=== PATIENT | male | born 1945 | race Caucasian/White ===

== ENCOUNTER → 2017-01-11 | Day surgery (SDC) | payer MEDICARE ==
[~2017-01-11] MED LIST: PROSCAR5 MG PO; SIMVASTATIN20 MG PO; TYLOX 5-500 CA1 EACH PO; ZOCOR
--- NOTE | ~2017-01-11 | OR ---
Unit #: [id number] #: [id number] Patient: GRADY ORONA [id number] [address] [address] [id number] O MR#: [id number] NAME: GRADY ORONA ROOM: Date of Procedure: 01/11/2017 Admission Date: 01/11/2017 Surgeon: Sanjay High M.D. : 1945 Attending Physician: Sanjay High M.D. Primary Care Physician: Gonzalo Colon M.D. OPERATIVE REPORT PROCEDURE PERFORMED Colonoscopy with biopsies. INDICATIONS FOR PROCEDURE The patient with history of colon polyps in the past. MEDICATIONS Monitored anesthesia. POSTOPERATIVE FINDINGS 1. Ascending colon shows a prominent fold, possibly adenomatous change. Multiple biopsies taken from this area. 2. Rest of the colon exam to cecum was normal with good prep. PLAN If adenomatous, repeat colonoscopy. Otherwise, repeat colonoscopy in 5 to 10 years. DESCRIPTION OF PROCEDURE The patient was explained of the procedure, risks, and benefits along with risks and benefits of anesthesia. He was brought to the endoscopy room. Propofol anesthesia was given. Rectal exam was done, which was normal. Colonoscope was lubricated, passed up the rectum, advanced under direct vision all the way to cecum. Cecum was identified by ileocecal valve and appendiceal orifice. I then started to pull the scope out carefully looking. Prominent fold versus adenoma in the ascending colon was biopsied. I retroflexed in the rectum, small hemorrhoids seen. Scope was gently pulled out. He tolerated it well. Dictated by... Aly Hernandez/carina TD: 01/11/2017 22:47 JOB #: [id number] Unit #: [id number] #: [id number] Patient: GRADY ORONA OPERATIVE REPORT Page 1 of 1 X Sanjay High MD X PROCEDURE OPERATIVE NOTE
== END | disposition home or self-care (01) ==
LOC: COPS 08:08
DX: Z12.11 Encounter for screening for malignant neoplasm of colon (principal); K52.9 Noninfective gastroenteritis and colitis, unspecified; K64.9 Unspecified hemorrhoids; N40.0 Benign prostatic hyperplasia without lower urinary tract symptoms; E78.5 Hyperlipidemia, unspecified; Z86.010 Personal history of colon polyps; Z79.899 Other long term (current) drug therapy
CPT/HCPCS: 88305